=== PATIENT | male | born 1960 | race African-American/Black ===

== ENCOUNTER 2023-01-16 17:32 | Outpatient (REF) | payer BC, SELFPAY ==
[2023-01-16 21:02] LABS: ALT 18 U/L (16-63); AST 13 U/L (15-37); Alkaline Phosphatase 78 U/L (46-116); Anion Gap 7.9 mmol/L (3-11); BUN 9 mg/dL (7-18); Bilirubin, Total 1.4 mg/dL (0.2-1.0); CO2 30.1 mmol/L (21.0-32.0); CREATININE 0.9 mg/dL (0.70-1.30); Calcium 9.3 mg/dL (8.5-10.1); Chloride 104 mmol/L (98-107); Estimated GFR 95.97 (mL/min/1.73m2); Glucose 92 mg/dL (74-106); Sodium 142 mmol/L (136-145); Total Protein 7.5 g/dL (6.4-8.2)
== END 2023-01-16 17:33 | disposition home or self-care (01) ==
LOC: LBN 17:32
PROVIDERS: Visit Provider Nurse Practitioner Family
DX: U07.1 COVID-19 (principal)
CPT/HCPCS: 80053

== ENCOUNTER → 2023-09-08 14:20 | Outpatient (CLI) | payer BC, SELFPAY ==
--- NOTE | 2023-09-08 15:00 | DI.RAD_ITS ---
Exam(s) XR CERVICAL SPINE COMP 4-5V EXAM: XR CERVICAL SPINE COMP 4-5V CLINICAL HISTORY: evaluate pathology. TECHNIQUE: 2D digital imaging was performed. Five views were performed. COMPARISON: CR XR THORACIC SPINE COMPLETE from 09/08/2023 FINDINGS: BONES: No fracture or destructive lesion. Prominent endplate osteophytes projecting anteriorly from C5 through C7. Facet degenerative changes. No significant neural foraminal narrowing. DISKS: Mild narrowing of the C5-6 disc space. [id number] narrowing of C6-7 disc space. The re maining intervertebral disc spaces are maintained. ALIGNMENT: Cervical spinal alignment is within normal limits. The odontoid and atlantoaxial articulat ions are normal. SOFT TISSUE: Normal. The lung apices are clear. IMPRESSION: Degenerative changes at C5-6 and C6-7. DATA REPOSITORY: RADIATION DOSE DELIVERED:
--- NOTE | 2023-09-08 15:00 | DI.RAD_ITS ---
Exam(s) XR THORACIC SPINE COMPLETE EXAM: XR THORACIC SPINE COMPLETE CLINICAL HISTORY: evaluate pathology. TECHNIQUE: 2D digital imaging was performed. Three views. COMPARISON: No exams were available for comparison FINDINGS: BONES: There is no fracture or destructive lesion. The vertebral bodies and posterior elements are un remarkable. ALIGNMENT: Within normal limits. DISKS: Interverebral disc spaces are maintained. Endplate osteophytes at T9-10. SOFT TISSUE: Visualized lungs are clear. Heart size normal. IMPRESSION: Mild degenerative changes. DATA REPOSITORY: RADIATION DOSE DELIVERED:
== END ==
PROVIDERS: PCP Nurse Practitioner Family; Visit Provider Nurse Practitioner Family
DX: M54.2 Cervicalgia (principal); M54.6 Pain in thoracic spine; M25.78 Osteophyte, vertebrae
CPT/HCPCS: 72050; 72072

== ENCOUNTER 2023-09-16 09:34 | Emergency (ER) | payer BC, SELFPAY ==
[2023-09-16 09:51] VITALS: BP 186/99; PULSE 86; RESP 18; TEMP 37.2; O2SAT 98
--- NOTE | 2023-09-16 10:30 | DI.RAD_ITS ---
Exam(s) XR HAND RT COMPLETE EXAM: XR HAND RT COMPLETE CLINICAL HISTORY: DOG BITE. TECHNIQUE: 2D digital imaging was performed. COMPARISON: No exams were available for comparison FINDINGS: 3 views No evidence of acute fracture or dislocation. No radiopaque foreign body evident. Large ring around the proximal phalanx of the 3rd finger limits evaluation at this level. IMPRESSION: No acute osseous findings in the hand. DATA REPOSITORY: RADIATION DOSE DELIVERED:
--- NOTE | 2023-09-16 11:33 | ED.GENADUL_ITS ---
Discharge Plan Disposition Patient Disposition: Home Discharge Details Clinical Impression: Elevated blood pressure reading, Dog bite Primary Care Provider: None,None ED Provider: Nitza Lundberg Home Meds and New Rx's Prescriptions: New amoxicillin-pot clavulanate [Augmentin] 500-125 mg tablet 1 tab PO Q12H 7 Days Qty: 14 0RF Discharge Instructions Instructions: Animal Bite (ED) Additional Instructions: Keep wound clean with soap and water. Watch for signs of infection including redness, increased swelling, increased pain, drainage or fever. Take antibiotics as prescribed. please follow up with PCP for re-check of your blood pressure Medical Decision Making Emergent evaluation of dog bite. Initial differential includes soft tissue injury, fracture, foreign body. X-ray obtained, independently interpreted, no obvious fracture, no obvious foreign body. Will treat empirically with Augmentin. Wound care discussed. Return precautions advised. Blood pressure was noted to be elevated today. Advised the patient of this and recommend that he follow-up with primary care for blood pressure recheck. HPI General Date/Time Provider Initiated Documentation: 09/16/23 10:05 . Limitations to Documentation: no limitations . Information obtained by: patient . HPI Narrative: 63-year-old gentleman without significant past medical history presents for evaluation of right hand injury. Just prior to arrival he reports that his dog snapped at him. He reports injuries to his long finger. Denies any pain worse with movement. Reports that the dog is his pet and has been vaccinated Related Data Home Medications Medication Instructions Recorded Confirmed amoxicillin 500 mg-potassium 1 tab PO Q12H 7 days #14 tabs 09/16/23 clavulanate 125 mg tablet (Augmentin) Previous Rx's Medication Instructions Recorded amoxicillin 500 mg-potassium 1 tab PO Q12H 7 days #14 tabs 09/16/23 clavulanate 125 mg tablet (Augmentin) Allergies Allergy/AdvReac Type Severity Reaction Status Date / Time No Known Allergies Allergy Verified 09/16/23 09:57 General Stated Complaint: AnimalBite MARKIE: 4 PFSH All Active Problems Dog bite (Acute) Elevated blood pressure reading (Acute) Social History Smoking/Tobacco Use Status: Never Smoking risk assessment performed?: Yes Alcohol Intake: never Substance use type: does not use Exam Narrative Exam Narrative: Review of Systems: All systems reviewed & are unremarkable except as noted in HPI and below Well-developed, no acute distress NACT PERRL, normal conjunctiva RRR Unlabored respiratory effort Nondistended abdomen Right hand with 3 subcentimeter puncture wounds on the long finger, neuro vascularly intact, not actively bleeding, no obvious foreign body, no obvious deformity, full No rashes or lesions. no focal neurologic deficits Appropriate mood and affect Course Vital Signs Vital signs: Vital Signs Temperature 37.2 C 09/16/23 09:51 Pulse 86 09/16/23 09:51 Respiratory Rate 18 09/16/23 09:51 Blood Pressure 186/99 H 09/16/23 09:51 Pulse Oximetry 98 09/16/23 09:51 Temperature 37.2 C 09/16/23 09:51 Temperature Source Skin 09/16/23 09:51 Pulse 86 09/16/23 09:51 Respiratory Rate 18 09/16/23 09:51 Respiratory Effort Normal 09/16/23 09:58 Blood Pressure 186/99 H 09/16/23 09:51 Blood Pressure Position Sitting 09/16/23 09:51 Pulse Oximetry 98 09/16/23 09:51 Oxygen Delivery Method Room Air 09/16/23 09:51 Oxygen Flow Rate 0 09/16/23 09:51 Pain Level 4 09/16/23 09:51
--- NOTE | 2023-09-16 11:39 | DI.VRAD_ITS ---
PROCEDURE INFORMATION: Exam: XR Right Hand Exam date and time: 09/16/2023 11:28 AM Age: 63 years old Clinical indication: Other: Dog bite att ring finger TECHNIQUE: Imaging protocol: Radiologic exam of the right hand. Views: 3 or more views. COMPARISON: No relevant prior studies available. FINDINGS: Bones/joints: Normal. Soft tissues: Soft tissue swelling. No soft tissue gas or foreign body. IMPRESSION: No fracture. Dictated and Authenticated by: Lester Spann MD. [facility] Tamika Suarez MD
== END 2023-09-16 18:16 | disposition home or self-care (01) ==
PROVIDERS: Emergency Provider Emergency Medicine
DX: S61.252A Open bite of right middle finger without damage to nail, initial encounter; W54.0XXA Bitten by dog, initial encounter
CPT/HCPCS: 99283; 73130; 99284

== ENCOUNTER → 2023-09-25 02:47 | Outpatient (CLI) | payer BC, SELFPAY ==
--- NOTE | 2023-09-25 09:30 | DI.MRI_ITS ---
Exam(s) MR CERVICAL SPINE WO EXAM: MR CERVICAL SPINE WO CLINICAL HISTORY: evaluate pathology, CERVICAL PAIN, M54.2, CERVICALGIA TECHNIQUE: Multiplanar multisequence MRI of the cervical spine was performed without intravenous con trast. COMPARISON: No exams were available for comparison FINDINGS: BONES: Vertebral body heights are maintained. Alignment: Some straightening of the normal cervical lordosis secondary to degenerative changes. Bone marrow signal intensity is within normal limits. CERVICAL CORD: Craniovertebral junction is unremarkable. The cervical cord is normal size and signal intensity. SOFT TISSUES: Unremarkable. C2-3: No disc herniation or bulge is identified. No evidence of neural foraminal narrowing. No signi ficant central canal stenosis. C3-4: No disc herniation or bulge is identified. No evidence of neural foraminal narrowing. No signif icant central canal stenosis. C4-5: No disc herniation or bulge is identified. No evidence of neural foraminal narrowing. No signif icant central canal stenosis. C5-6: Mild loss of disc height. Circumferential disc osteophytes. No focal disc herniation is ident ified.Mild neural foraminal narrowing. Mild effacement of the anterior CSF space. No significant ce ntral canal stenosis. C6-7: Mild loss of disc height. Circumferential disc osteophytes. No focal disc herniation is iden tified. Moderate neural foraminal narrowing. Mild effacement of the anterior CSF space. No signific ant central canal stenosis. C7-T1: Mild disc bulging. No evidence of neural foraminal narrowing. No significant central canal st enosis. IMPRESSION: Degenerative disc changes from C5-6 through C7-T1. No focal disc herniation. Bilateral neural foraminal narrowing. DATA REPOSITORY:
== END ==
PROVIDERS: PCP Nurse Practitioner Family; Visit Provider Nurse Practitioner Family
DX: M50.021 Cervical disc disorder at C4-C5 level with myelopathy (principal); M99.63 Osseous and subluxation stenosis of intervertebral foramina of lumbar region
CPT/HCPCS: 72141